=== PATIENT | male | born 1955 | race Caucasian/White ===

== ENCOUNTER 2019-11-17 15:28 | Observation (INO) | payer OTHER ==
--- NOTE | 2019-11-17 15:57 | RAD ---
EXAM: CHEST ONE VIEW HISTORY: Chest pain COMPARISON: None FINDINGS: The cardiac silhouette and pulmonary vasculature is within normal limits. Scattered calcified granulo melendez are seen with calcified bilateral hilar lymph nodes related to prior granulomatous disease. Lungs are otherwise clear without consolidation or pleural fluid seen. Postoperative changes lower ce rvical and upper thoracic spine are noted. Degenerative changes are seen in the thoracic spine. IMPRESSION: No acute cardiopulmonary process.
[2019-11-17 16:05] LABS: #Eosinphils 0.1 thou/uL (0.0-0.7); #Lymphocytes 1.4 thou/uL (1.20-3.40); #Monocytes 0.7 thou/uL (0.11-0.59); #Neutrophils 4.9 thou/uL (1.40-6.50); %Basophils 0.5 % (0.0-1.0); %Eosinophils 0.9 % (0.0-10.0); %Lymphocytes 19.8 % (21.0-51.0); %Monocytes 9.7 % (0.0-10.0); Hemoglobin 14.7 g/dL (14.0-18.0); Mean Corpuscular HGB CONC 32.3 g/dL (32.0-36.0); Mean Corpuscular Hemoglobin 30.4 pg (27.0-31.0); Mean Corpuscular Volume 94.1 fL (78.0-98.0); Mean Platelet Volume 6.5 fL (7.4-10.4); Platelet Count 251 thou/uL (130-400); RBC Distribution Width 12.4 % (11.5-14.5); Red Blood Cell (RBC) Count 4.84 mill/uL (4.70-6.10); White Blood Cell (WBC) Count 7.1 thou/uL (4.8-10.8)
[2019-11-17 16:25] LABS: ALT (SGPT) 19 U/L (8-55); AST (SGOT) 22 U/L (5-34); Albumin 4.1 g/dL (3.4-4.8); Alkaline Phosphatase 64 U/L (40-110); Anion Gap 12 mmol/L (10-20); BUN (Urea Nitrogen) 16 mg/dL (8.4-25.7); Bilirubin, Total 0.3 mg/dL (0.2-1.2); CK (CPK) 93 U/L (30-200); Calc. Creatinine Clearance 0 mL/min (70-130); Calcium 9.6 mg/dL (7.8-10.44); Carbon Dioxide 26 mmol/L (23-31); Chloride 108 mmol/L (98-107); Estimated GFR-MDRD 78; Globulin 3.3 g/dL (2.4-3.5); Glucose 102 mg/dL (80-115); Potassium 4.6 mmol/L (3.5-5.1); Protein, Total 7.4 g/dL (5.8-8.1); Sodium 141 mmol/L (136-145)
[2019-11-17] MEDS ORDERED: Nitroglycerin 0.4 MG TAB (25 Tab Bottle) PO PRN (20:32)
[2019-11-17] MEDS ORDERED: Guaifenesin DM 100-10/5 ML UDCUP PO PRN (20:37)
[2019-11-17] MEDS ORDERED: Acetaminophen 325 MG TAB PO PRN (20:37)
[2019-11-17] MEDS ORDERED: Ipratropium Oral Inhaler INH PRN (20:42)
--- NOTE | 2019-11-17 21:00 | PDOC.HHP ---
Hospitalist HPI - History of Present Illness Chest pain History of Present Illness: PCP: None The patient is a 64/M with PMH significant for CABG x2 (2009), HTN, HLD, COPD and asthma that presents to the ER for the above complaint. The patient reports developing acute onset of chest pain at 1300 this afternoon, located midsternum and radiating to right chest, describes as sharp, stabbing, exacerbated with deep inhalation, max intensity 7/10. Reports associated SOB, diaphoresis and light headedness. Reports similar episode last night while sitting at dinning table. Same symptoms , lasting approximately 10 minutes, then resolved. He thought it was more muscular skeletal pain since earlier that day he lifted a motorcycle tire and probably pulled a muscle. The patient was given SL nitro x 2 and ASA with improvement of chest pain, reporting 5/10. Patient denies heart palpitations, orthopnea, lower extremity swelling, illicit drug usage. He was brought to the ER by [facility]. Upon examination, his chest pain was resolved. The patient has not been to a doctor since 2009. He does not take any medications. Allergies: Penicillins Home Medications: NONE ED Course: VS 98.6F, 131/77, 84, 20, 96%RA, pain 0/10 EKG NSR, CXR negative trop negative CK 93 Hospitalist ROS - Review of Systems Constitutional: denies: fever, chills, sweats, weakness, malaise, other Eyes: denies: pain, vision change, conjunctivae inflammation, eyelid inflammation, redness, other ENT: denies: ear pain, ear discharge, nose pain, nose discharge, nose congestion , mouth pain, mouth swelling, throat pain, throat swelling, other Respiratory: reports: cough (chronic), dry, shortness of breath, pleuritic pain , wheezing. denies: hemoptysis, SOB with excertion, sputum Cardiovascular: reports: chest pain, light headedness. denies: palpitations, orthopnea, paroxysmal noc. dyspnea, edema Gastrointestinal: denies: nausea, vomiting, abdominal pain, diarrhea, constipation Genitourinary: denies: dysuria, frequency, incontinence, hematuria Skin: denies: rash, lesions, bruising Neurological: denies: weakness, numbness, incoordination, change in speech, confusion Hospitalist History - Past Medical History Source: patient Cardiac: reports: CAD, HTN (not treating), Hyperlipidemia (not treating) Pulmonary: reports: asthma, COPD - Past Surgical History Past Surgical History: reports: no pertinent history - Family History Family History: reports: cardiac disorder, cerebrovascular accident, respiratory disorder Other Family History: n - Social History Smoking Status: Current every day smoker Tobacco Type: cigarettes (1/2 ppd since teenager) Alcohol: reports: Rare Drugs: reports: none Living Situation: Other Occupation: Currently in Intermediate Activity level: independent ambulation - Exam General Appearance: NAD, awake alert Eye: anicteric sclera ENT: normocephalic atraumatic Neck: supple, no JVD Heart: RRR, no murmur, no gallops, no rubs, normal peripheral pulses Respiratory: no tachypnea, rhonchi, wheezes. negative: no rales Gastrointestinal: soft, non-tender, normal bowel sounds, no guarding, no rigidity Extremities: no cyanosis, no edema Neurological: no focal deficits Musculoskeletal: normal tone, normal strength Psychiatric: normal affect, A&O x 3 Hospitalist Results - Labs Result Diagrams: 11/17/19 15:54 11/17/19 15:54 Lab results: WBC 7.1 thou/uL (4.8-10.8) 11/17/19 15:54 Hgb 14.7 g/dL (14.0-18.0) 11/17/19 15:54 Hct 45.6 % (42.0-52.0) 11/17/19 15:54 MCV 94.1 fL (78.0-98.0) 11/17/19 15:54 Plt Count 251 thou/uL (130-400) 11/17/19 15:54 Neutrophils % 69.0 % (42.0-75.0) 11/17/19 15:54 Sodium 141 mmol/L (136-145) 11/17/19 15:54 Potassium 4.6 mmol/L (3.5-5.1) 11/17/19 15:54 Chloride 108 mmol/L (98-107) H 11/17/19 15:54 Carbon Dioxide 26 mmol/L (23-31) 11/17/19 15:54 BUN 16 mg/dL (8.4-25.7) 11/17/19 15:54 Creatinine 0.97 mg/dL (0.7-1.3) 11/17/19 15:54 Glucose 102 mg/dL (80-115) 11/17/19 15:54 Calcium 9.6 mg/dL (7.8-10.44) 11/17/19 15:54 Total Bilirubin 0.3 mg/dL (0.2-1.2) 11/17/19 15:54 AST 22 U/L (5-34) 11/17/19 15:54 ALT 19 U/L (8-55) 11/17/19 15:54 Alkaline Phosphatase 64 U/L (40-110) 11/17/19 15:54 Creatine Kinase 93 U/L (30-200) 11/17/19 15:54 Troponin I Less than 0.010 ng/mL (< 0.028) 11/17/19 15:54 Serum Total Protein 7.4 g/dL (5.8-8.1) 11/17/19 15:54 Albumin 4.1 g/dL (3.4-4.8) 11/17/19 15:54 - EKG Interpretation EKG: NSR - Radiology Interpretation Chest x-ray Status: report reviewed by il Hospitalist H&P A/P - Problem (1) Chest pain Code(s): R07.9 - CHEST PAIN, UNSPECIFIED Status: Acute Assessment and Plan: Admit to telemetry floor, observations status Expected length of stay less than 2 midnights EKG NSR, trop negative HEART Score 5 Wells Score 0, low risk Trend troponins [place] [employer] SU[employer] SPECIALIST and echocardiogram Check TSH, FLP, Mag level and BNP Continue ASA, Nitropaste NPO at midnight (2) HTN (hypertension) Code(s): I10 - ESSENTIAL (PRIMARY) HYPERTENSION Status: Chronic Assessment and Plan: History of CABG Does not take any medications Will monitor blood pressure (3) HLD (hyperlipidemia) Code(s): E78.5 - HYPERLIPIDEMIA, UNSPECIFIED Status: Chronic Assessment and Plan: Does not take any medications Will start high intensity statin Will check FLP in am (4) Tobacco abuse Code(s): Z72.0 - TOBACCO USE Status: Chronic Assessment and Plan: 1/2 ppd > 40 years Unwilling to quit Will start NRT Will phone counselor tobacco cessation (5) COPD (chronic obstructive pulmonary disease) Status: Chronic Assessment and Plan: RR even unlabored, Spo2 WNL patient had rhonchi and wheezes with chronic dry cough on examination Will start Atrovent and guaifenesin prn - Plan Plan: Consult walking program SCDs for DVT prophylaxis Pepcid for GI prophylaxis Full Code Medical decision maker is Umberto Diaz at [phone] Garcia
[2019-11-17 21:48] LABS: Troponin I 0.015 ng/mL (< 0.028)
[2019-11-17 22:04] VITALS: BMI 22.6
[2019-11-17] MEDS: Famotidine 20 MG TAB PO SCH (22:27)
[2019-11-17] MEDS: Nicotine 14 MG PATCH TD SCH (22:30)
[2019-11-17] MEDS: Sodium Chloride 0.9% 1,000 ML IV SCH (22:30)
[2019-11-17] MEDS: Nitroglycerin 2% Ointment 1 INCH/1 GM Packet TOP SCH (22:30)
[2019-11-18 05:24] LABS: #Basophils 0.1 thou/uL (0.0-0.2); #Eosinphils 0.2 thou/uL (0.0-0.7); #Lymphocytes 1.9 thou/uL (1.20-3.40); #Monocytes 0.8 thou/uL (0.11-0.59); #Neutrophils 4.6 thou/uL (1.40-6.50); Hemoglobin 14.1 g/dL (14.0-18.0); Mean Corpuscular HGB CONC 31.7 g/dL (32.0-36.0); Mean Corpuscular Volume 94.7 fL (78.0-98.0); Mean Platelet Volume 6.6 fL (7.4-10.4); Platelet Count 233 thou/uL (130-400); RBC Distribution Width 12.4 % (11.5-14.5); Red Blood Cell (RBC) Count 4.68 mill/uL (4.70-6.10); White Blood Cell (WBC) Count 7.5 thou/uL (4.8-10.8)
[2019-11-18 05:45] LABS: Anion Gap 10 mmol/L (10-20); BUN (Urea Nitrogen) 13 mg/dL (8.4-25.7); Calc. Creatinine Clearance 82 mL/min (70-130); Calcium 8.8 mg/dL (7.8-10.44); Carbon Dioxide 27 mmol/L (23-31); Chloride 108 mmol/L (98-107); Cholesterol 133 mg/dl (< 200 Desired); Estimated GFR-MDRD 89; Glucose 94 mg/dL (80-115); HDL Cholesterol 44 mg/dL (>60 Neg Risk); LDL Cholesterol, Calculated 75 mg/dL; Potassium 4.1 mmol/L (3.5-5.1); Sodium 141 mmol/L (136-145); Triglycerides 71 mg/dL (Less than 150)
[2019-11-18] MEDS: Nitroglycerin 2% Ointment 1 INCH/1 GM Packet TOP SCH ×3 (08:30→21:31)
[2019-11-18] MEDS: Famotidine 20 MG TAB PO SCH ×2 (08:30→21:30)
[2019-11-18] MEDS: Aspirin 81 mg Enteric Coated Tablet PO SCH (08:30)
--- NOTE | 2019-11-18 11:24 | PDOC.HOSPP ---
- Subjective Encounter Date: 11/18/19 Encounter Time: 11:23 Subjective: Mr. Diaz was seen today in follow-up of chest pain. He notes it mostly when coughing. He also notes some shortness of breath as well. - Objective Vital Signs & Weight: Vital Signs (12 hours) Temp Pulse Resp BP Pulse Ox 11/18/19 08:40 96.6 F L 77 16 156/88 H 97 11/18/19 03:45 95.1 F L 88 21 H 153/90 H 96 Weight Weight 149 lb 3.2 oz I&O: 11/17/19 11/18/19 11/19/19 06:59 06:59 06:59 Intake Total 519 Output Total 375 Balance 144 Result Diagrams: 11/18/19 05:07 11/18/19 05:07 Additional Labs: Accuchecks 11/17/19 22:24 POC Glucose 116 H Hospitalist ROS - Medication Medications: Active Medications Generic Name Dose Route Start Last Admin Trade Name Freq PRN Reason Stop Dose Admin Aspirin 81 mg 11/18/19 09:00 11/18/19 08:30 Ecotrin PO 81 mg DAILY RONNA Administration Famotidine 20 mg 11/17/19 21:00 11/18/19 08:30 Pepcid PO 20 mg BID RONNA Administration Sodium Chloride 1,000 mls @ 75 mls/hr 11/17/19 23:59 11/17/19 22:30 Normal Saline 0.9% IV 1,000 mls .[id number] RONNA Administration Nicotine 14 mg 11/17/19 21:00 11/17/19 22:30 Nicoderm Patch TD Not Given Q24HR RONNA Nitroglycerin 0.5 inch 11/17/19 22:00 11/18/19 08:30 Nitro-Bid 2% Ointment TOP Not Given Q8HR RONNA Sodium Chloride 10 ml 11/17/19 20:32 11/17/19 22:27 Flush - Normal Saline IVF 10 ml PRN PRN Administration Saline Flush - Exam Eye: PERRL, anicteric sclera Heart: RRR, no murmur, no gallops, no rubs, normal peripheral pulses Respiratory: wheezes (Bilaterally, no rales but occasional rhonchi) Gastrointestinal: soft, non-tender, non-distended, normal bowel sounds, no palpable masses, no hepatomegaly Extremities: no cyanosis, no edema Hosp A/P (1) Acute and chronic respiratory failure Code(s): J96.20 - ACUTE AND CHR RESP FAILURE, UNSP W HYPOXIA OR HYPERCAPNIA Status: Acute (2) COPD exacerbation Code(s): J44.1 - CHRONIC OBSTRUCTIVE PULMONARY DISEASE W (ACUTE) EXACERBATION Status: Acute (3) Chest pain Code(s): R07.9 - CHEST PAIN, UNSPECIFIED Status: Acute (4) HTN (hypertension) Code(s): I10 - ESSENTIAL (PRIMARY) HYPERTENSION Status: Chronic - Plan * Acute on chronic respiratory failure- due to COPD exacerbation- will continue Atrovent inhaler, and will add Dulera\ * Chest pain- ;ossible due to above- however work-up for ischemic heart disease and biliary disease planned * Patient has been threatening to leave AMA- discussed the treatment plan and consequences of leaving * COVID screen is pending * HTN- blood pressure is a bit elevated- will add Cardizem for blood pressure * SVT- patient had an episode of SVT- possibly related to COPD- kaylin add Cardizem as above, and if he recurs consider Cardiology evaluation.
[2019-11-18] MEDS ORDERED: Regadenoson 0.4 MG/5 ML SYRINGE ONE (11:29)
[2019-11-18] MEDS: Sodium Chloride 0.9% 1,000 ML IV SCH (11:46)
[2019-11-18 11:56] LABS: SARS-CoV-2 MS2 Positive; SARS-CoV-2 N Gene Negative; SARS-CoV-2 S Gene Negative; SARS-CoV-2 orf1ab Negative
[2019-11-18] MEDS: Acetaminophen 325 MG TAB PO PRN (14:17)
--- NOTE | 2019-11-18 15:49 | NM ---
Radionucleotide stress only myocardial perfusion scan with CT attenuation correction and SPECT imagin g Left ventricular wall motion evaluation and ejection fraction HISTORY: Chest pain. FINDINGS: Lexiscan protocol. Homogeneous uptake of radiotracer throughout the left ventricular myocar dium. No focal perfusion defect or reversibility. QGS analysis of gated SPECT images shows no focal wall motion abnormalities. Ejection fraction calcul ated at 63%. IMPRESSION : Normal perfusion only scan. Normal LVEF.
--- NOTE | 2019-11-18 16:08 | ULT ---
ULTRASOUND ABDOMEN: 11/18/19 HISTORY: Elevated lipase. FINDINGS: The liver demonstrates homogeneous echotexture without focal mass or intrahepatic ductal dilatation. No gallstones, gallbladder wall thickening or pericholecystic fluid is seen. The common duct measures 3 mm in diameter. The right kidney and pancreas are unremarkable except for minimally dilated pancre atic duct measuring 4 mm. No free fluid is seen in Guy's pouch. IMPRESSION: Mildly dilated pancreatic duct, otherwise unremarkable exam. POS: MZA
[2019-11-18] MEDS: Mometasone 100 MCG/Formoterol 5 MCG 120 PUFF INHALER INH SCH (18:16)
[2019-11-18] MEDS ORDERED: Atorvastatin Calcium 20 MG TAB PO SCH (21:00)
[2019-11-18] MEDS: Nicotine 14 MG PATCH TD SCH (21:31)
[2019-11-19] MEDS: Sodium Chloride 0.9% 1,000 ML IV SCH (02:34)
[2019-11-19] MEDS: Nitroglycerin 2% Ointment 1 INCH/1 GM Packet TOP SCH ×2 (05:00→14:26)
[2019-11-19] MEDS: Acetaminophen 325 MG TAB PO PRN (05:03)
[2019-11-19 05:06] LABS: #Eosinphils 0.1 thou/uL (0.0-0.7); #Lymphocytes 2.1 thou/uL (1.20-3.40); #Monocytes 0.7 thou/uL (0.11-0.59); #Neutrophils 4.2 thou/uL (1.40-6.50); %Basophils 0.5 % (0.0-1.0); %Lymphocytes 29.4 % (21.0-51.0); %Monocytes 9.4 % (0.0-10.0); %Neutrophils 58.7 % (42.0-75.0); Hemoglobin 13.8 g/dL (14.0-18.0); Mean Corpuscular HGB CONC 31.7 g/dL (32.0-36.0); Mean Corpuscular Hemoglobin 29.9 pg (27.0-31.0); Mean Corpuscular Volume 94.3 fL (78.0-98.0); Mean Platelet Volume 6.9 fL (7.4-10.4); Platelet Count 240 thou/uL (130-400); RBC Distribution Width 12.2 % (11.5-14.5); Red Blood Cell (RBC) Count 4.62 mill/uL (4.70-6.10); White Blood Cell (WBC) Count 7.2 thou/uL (4.8-10.8)
[2019-11-19 05:22] LABS: Anion Gap 10 mmol/L (10-20); BUN (Urea Nitrogen) 13 mg/dL (8.4-25.7); Calc. Creatinine Clearance 73 mL/min (70-130); Calcium 8.7 mg/dL (7.8-10.44); Carbon Dioxide 27 mmol/L (23-31); Chloride 106 mmol/L (98-107); Estimated GFR-MDRD 77; Glucose 89 mg/dL (80-115); Sodium 139 mmol/L (136-145)
[2019-11-19 05:43] LABS: Free T4 (Free Thyroxine) 0.78 ng/dL (0.70-1.48); Thyroid Stimulating Hormone 1.4954 uIU/mL (0.35-4.94)
[2019-11-19] MEDS: Mometasone 100 MCG/Formoterol 5 MCG 120 PUFF INHALER INH SCH (06:52)
[2019-11-19] MEDS: Aspirin 81 mg Enteric Coated Tablet PO SCH (09:09)
[2019-11-19] MEDS: Famotidine 20 MG TAB PO SCH (09:09)
[2019-11-19 15:50] VITALS: BP 149/78; TEMP 98.4
--- NOTE | 2019-11-19 16:36 | PDOC.HOSPP ---
- Subjective Encounter Date: 11/19/19 Encounter Time: 16:33 Subjective: Mr. Diaz was seen today in follow-up of respiratory failure. He does not have any complaints. He says he is breathing better. - Objective Vital Signs & Weight: Vital Signs (12 hours) Temp Pulse Resp BP Pulse Ox 11/19/19 15:13 98.4 F 73 16 149/78 H 97 11/19/19 11:08 97.5 F L 67 16 140/83 97 11/19/19 07:12 98.0 F 76 18 127/73 96 11/19/19 06:53 98 11/19/19 06:52 71 16 96 Weight Weight 151 lb 4.8 oz I&O: 11/18/19 11/19/19 11/20/19 06:59 06:59 06:59 Intake Total 519 2523 480 Output Total 375 1225 900 Balance 144 1298 -420 Result Diagrams: 11/19/19 04:15 11/19/19 04:15 Hospitalist ROS - Medication Medications: Active Medications Generic Name Dose Route Start Last Admin Trade Name Freq PRN Reason Stop Dose Admin Acetaminophen 650 mg 11/18/19 12:55 11/19/19 05:03 Tylenol PO 650 mg Q6H PRN Administration Pain Aspirin 81 mg 11/18/19 09:00 11/19/19 09:09 Ecotrin PO 81 mg DAILY RONNA Administration Atorvastatin Calcium 20 mg 11/18/19 21:00 11/18/19 21:30 Lipitor PO 20 mg HS RONNA Administration Diltiazem HCl 30 mg 11/18/19 17:00 11/19/19 11:54 Cardizem PO 30 mg ACHS RONNA Administration Famotidine 20 mg 11/17/19 21:00 11/19/19 09:09 Pepcid PO 20 mg BID RONNA Administration Sodium Chloride 1,000 mls @ 75 mls/hr 11/17/19 23:59 11/19/19 02:34 Normal Saline 0.9% IV 1,000 mls .[id number] RONNA Administration Ipratropium [place] 1 puff 11/17/19 20:42 11/18/19 12:11 Atrovent Hfa INH 1 puff QID-RT PRN Administration Wheezing or Cough Mometasone Furoate/Formoterol Fumar 1 puff 11/18/19 18:30 11/19/19 06:52 Dulera 100 Mcg/5 Mcg Inhaler INH 1 puff BID-RT RONNA Administration Nicotine 14 mg 11/17/19 21:00 11/18/19 21:31 Nicoderm Patch TD Not Given Q24HR [facility] Nitroglycerin 0.5 inch 11/17/19 22:00 11/19/19 14:26 Nitro-Bid 2% Ointment TOP Not Given Q8HR [facility] Sodium Chloride 10 ml 11/17/19 20:32 11/17/19 22:27 Flush - Normal Saline IVF 10 ml PRN PRN Administration Saline Flush - Exam Eye: PERRL, anicteric sclera Heart: RRR, no murmur, no gallops, no rubs, normal peripheral pulses Respiratory: CTAB (with only occasional wheeze) Gastrointestinal: soft, non-tender, non-distended, normal bowel sounds, no palpable masses, no hepatomegaly Extremities: no cyanosis, no edema Hosp A/P (1) Acute and chronic respiratory failure Code(s): J96.20 - ACUTE AND CHR RESP FAILURE, UNSP W HYPOXIA OR HYPERCAPNIA Status: Acute (2) COPD exacerbation Code(s): J44.1 - CHRONIC OBSTRUCTIVE PULMONARY DISEASE W (ACUTE) EXACERBATION Status: Acute (3) Chest pain Code(s): R07.9 - CHEST PAIN, UNSPECIFIED Status: Acute (4) HTN (hypertension) Code(s): I10 - ESSENTIAL (PRIMARY) HYPERTENSION Status: Chronic - Plan * Acute on chronic respiratory failure- due to COPD exacerbation * He is clinically improved * Will send him home with Symbicort IH as well as an Albuterol IH * Stress test was negative * COVID screen also negative * Discussed the need to stop smoking * He is stable for discharge home today
--- NOTE | 2019-11-20 01:25 | DIS ---
DATE OF ADMISSION: 11/17/2019 DATE OF DISCHARGE: 11/19/2019 DISCHARGE DISPOSITION: Home. DISCHARGE DIAGNOSES: 1. Acute on chronic respiratory failure due to chronic obstructive pulmonary disease. 2. Chest pain, likely due to #1. 3. Hypertension. 4. History of coronary artery disease. 5. Tobacco abuse. DISCHARGE MEDICATIONS: Include albuterol inhaler 1 to 2 puffs q.6h as needed, as well as Symbicort 80/4.5 two puffs twice daily. CODE STATUS: Full code. ALLERGIES: PENICILLIN. IMAGING DONE DURING THE HOSPITAL STAY: The patient had a nuclear stress test, which was negative, also had an abdominal ultrasound which showed a slightly dilated pancreatic duct, otherwise normal exam. HOSPITAL COURSE: Mr. Diaz is a pleasant 64-year-old gentleman, who presented to the emergency room complaining of chest tightness and chest pain. He was placed in observation, ruled out. A nuclear stress test was obtained, which was negative. His pain was more or less atypical, worse with breathing and he had quite a bit of wheezing on exam. He is a long-time smoker and had findings consistent with COPD on x-ray and it is suspected that this is likely the result of COPD exacerbation. Therefore, the patient is being discharged home with albuterol as well as Symbicort. He has been instructed to follow up with the primary care physician in 1 to 2 weeks and he is also instructed on smoking cessation. Job ID: [id number]
== END 2019-11-19 17:40 | disposition home or self-care (01) ==
LOC: ERS 15:28 → 2SW 22:01
PROVIDERS: ADMIT Internal Medicine; ATTEND Internal Medicine
DX: J96.20 Acute and chronic respiratory failure, unspecified whether with hypoxia or hypercapnia (principal); J43.9 Emphysema, unspecified; I25.10 Atherosclerotic heart disease of native coronary artery without angina pectoris; I10 Essential (primary) hypertension; E78.5 Hyperlipidemia, unspecified; J45.909 Unspecified asthma, uncomplicated; F17.210 Nicotine dependence, cigarettes, uncomplicated; R07.9 Chest pain, unspecified; Z88.0 Allergy status to penicillin; Z95.1 Presence of aortocoronary bypass graft
CPT/HCPCS: 36415; 36416; 71045; 76705; 78452; 80048; 80053; 80061; 82150; 82550; 83690; 83735; 83880; 84439; 84443; 84484; 85025; 87635; 93005; 93010; 93017; 93306; 94760; 96360; 96361; A9500; G0378; J2785; U0003

== ENCOUNTER 2020-10-25 05:27 | Inpatient (IN) | payer MEDICARE, OTHER, SELFPAY ==
[2020-10-25] MEDS ORDERED: Albuterol Sulfate 2.5 mg/3 ml Neb ONE (06:42)
[2020-10-25 06:46] LABS: #Basophils 0.1 thou/uL (0.0-0.2); #Eosinphils 0.1 thou/uL (0.0-0.7); #Lymphocytes 1.6 thou/uL (1.20-3.40); #Monocytes 1.5 thou/uL (0.11-0.59); #Neutrophils 8.9 thou/uL (1.40-6.50); %Basophils 0.5 % (0.0-1.0); %Eosinophils 0.7 % (0.0-10.0); %Neutrophils 73.8 % (42.0-75.0); Hemoglobin 13.2 g/dL (14.0-18.0); Mean Corpuscular HGB CONC 31.8 g/dL (32.0-36.0); Mean Corpuscular Hemoglobin 31.6 pg (27.0-31.0); Mean Corpuscular Volume 99.2 fL (78.0-98.0); Platelet Count 267 thou/uL (130-400); RBC Distribution Width 13.9 % (11.5-14.5); Red Blood Cell (RBC) Count 4.19 mill/uL (4.70-6.10); White Blood Cell (WBC) Count 12.1 thou/uL (4.8-10.8)
[2020-10-25 06:58] LABS: Troponin I 0.057 ng/mL (< 0.028)
[2020-10-25 07:43] LABS: Albumin 3.1 g/dL (3.4-4.8); Calcium 8.2 mg/dL (7.8-10.44); Chloride 104 mmol/L (98-107); Potassium 6.2 mmol/L (3.5-5.1); Sodium 136 mmol/L (136-145)
[2020-10-25 07:44] LABS: ALT (SGPT) 116 U/L (8-55); AST (SGOT) 79 U/L (5-34); Alkaline Phosphatase 145 U/L (40-110); Anion Gap 15 mmol/L (10-20); BUN (Urea Nitrogen) 30 mg/dL (8.4-25.7); Bilirubin, Total 0.3 mg/dL (0.2-1.2); Calc. Creatinine Clearance 0 mL/min (70-130); Carbon Dioxide 23 mmol/L (23-31); Globulin 3.8 g/dL (2.4-3.5); Glucose 91 mg/dL (80-115); Lipase 227 U/L (8-78); Protein, Total 6.9 g/dL (5.8-8.1)
[2020-10-25 09:12] LABS: Anion Gap 12 mmol/L (10-20); BUN (Urea Nitrogen) 29 mg/dL (8.4-25.7); Calc. Creatinine Clearance 0 mL/min (70-130); Carbon Dioxide 27 mmol/L (23-31); Chloride 106 mmol/L (98-107); Glucose 100 mg/dL (80-115); Potassium 4.9 mmol/L (3.5-5.1); Sodium 140 mmol/L (136-145)
[2020-10-25] MEDS ORDERED: Senokot S 8.6-50 MG TAB PO PRN (09:50)
[2020-10-25] MEDS ORDERED: Guaifenesin DM 100-10/5 ML UDCUP PO PRN (09:50)
[2020-10-25] MEDS ORDERED: Acetaminophen 325 MG TAB PO PRN (09:50)
[2020-10-25] MEDS ORDERED: Calcium Carbonate 500 MG ChewTAB PO PRN (09:50)
[2020-10-25] MEDS ORDERED: HYDROcodone/Acetaminophen 5/325 mg Tablet PO PRN (09:50)
[2020-10-25] MEDS ORDERED: Bisacodyl 10 MG SUPP PR PRN (09:50)
[2020-10-25] MEDS ORDERED: Ondansetron PF 4 MG/2 ML Vial IVP PRN (09:50)
[2020-10-25 10:51] LABS: Troponin I 0.077 ng/mL (< 0.028)
[2020-10-25 11:08] LABS: HBCM Index 0.07 S/CO (0-0.79); HBSAg Index 0.22 S/CO (0-0.99); Hep A IgM AB Non-Reactive (NonReactive); Hep B Surf Ag Non-Reactive S/CO (NonReactive); Hep C IgG Ab Non-Reactive (NonReactive); Hep C Index 0.08 S/CO (0-0.79); Hepatitis B Core IgM Abs Non-Reactive (NonReactive)
[2020-10-25] MEDS ORDERED: Iopamidol-370 76% 500 ML 1 ML ONE (12:22)
[2020-10-25] MEDS ORDERED: Iopamidol 370 76% 50 ML VIAL FS ONE (12:22)
[2020-10-25 13:13] LABS: Troponin I 0.083 ng/mL (< 0.028)
[2020-10-25] MEDS ORDERED: Digoxin 0.5 MG/2 ML AMP ONE (13:28)
[2020-10-25] MEDS ORDERED: Digoxin 0.5 MG/2 ML AMP SLOW IVP SCH (13:30)
[2020-10-25] MEDS ORDERED: Diltiazem 125 MG in Sodium Chloride 0.9% 100 ML IVPB SCH (13:30)
[2020-10-25] MEDS ORDERED: Diltiazem 125 MG/25 ML ONE (13:33)
[2020-10-25] MEDS ORDERED: Metoprolol Tartrate 5 MG/5 ML VIAL ONE (13:36)
[2020-10-25 15:05] VITALS: BMI 24.9
[2020-10-25 15:52] LABS: SARS-CoV-2 PCR by NAA DETECTED (NotDetected)
[2020-10-25] MEDS: Furosemide 40 MG/4 ML VIAL SLOW IVP SCH (16:42)
[2020-10-25] MEDS ORDERED: methylPREDNISolone Sod Succ 40 MG VIAL IVP SCH (21:00)
[2020-10-25] MEDS: Doxycycline 100 MG CAP PO SCH (21:21)
[2020-10-25] MEDS: Apixaban 5 MG TAB PO SCH ×3 (21:21→23:06)
[2020-10-25] MEDS: Metoprolol Tartrate 50 MG TAB PO SCH ×2 (21:21→22:09)
[2020-10-25] MEDS ORDERED: Furosemide 40 MG/4 ML VIAL SLOW IVP SCH (22:30)
[2020-10-25] MEDS: Albuterol 200 PUFF (6.7GM INHALER) INH SCH (22:42)
[2020-10-26 01:33] LABS: Troponin I 0.062 ng/mL (< 0.028)
[2020-10-26] MEDS: Albuterol 200 PUFF (6.7GM INHALER) INH SCH ×4 (01:36→21:03)
[2020-10-26] MEDS: methylPREDNISolone Sod Succ 40 MG VIAL IVP SCH ×4 (03:54→21:04)
[2020-10-26 06:01] LABS: #Lymphocytes 0.7 thou/uL (1.20-3.40); #Monocytes 0.4 thou/uL (0.11-0.59); #Neutrophils 8.5 thou/uL (1.40-6.50); %Basophils 0.2 % (0.0-1.0); %Lymphocytes 7.4 % (21.0-51.0); %Monocytes 3.7 % (0.0-10.0); %Neutrophils 88.7 % (42.0-75.0); Hemoglobin 13.9 g/dL (14.0-18.0); Mean Corpuscular HGB CONC 32.3 g/dL (32.0-36.0); Mean Corpuscular Hemoglobin 31.3 pg (27.0-31.0); Mean Corpuscular Volume 96.9 fL (78.0-98.0); Mean Platelet Volume 6.3 fL (7.4-10.4); Platelet Count 278 thou/uL (130-400); RBC Distribution Width 13.5 % (11.5-14.5); Red Blood Cell (RBC) Count 4.43 mill/uL (4.70-6.10); White Blood Cell (WBC) Count 9.6 thou/uL (4.8-10.8)
[2020-10-26 06:24] LABS: ALT (SGPT) 110 U/L (8-55); AST (SGOT) 58 U/L (5-34); Albumin 3.4 g/dL (3.4-4.8); Alkaline Phosphatase 137 U/L (40-110); Anion Gap 14 mmol/L (10-20); BUN (Urea Nitrogen) 21 mg/dL (8.4-25.7); Bilirubin, Total 0.8 mg/dL (0.2-1.2); Calc. Creatinine Clearance 79 mL/min (70-130); Calcium 9.3 mg/dL (7.8-10.44); Carbon Dioxide 30 mmol/L (23-31); Chloride 99 mmol/L (98-107); Globulin 3.4 g/dL (2.4-3.5); Glucose 117 mg/dL (80-115); Potassium 4.7 mmol/L (3.5-5.1); Protein, Total 6.8 g/dL (5.8-8.1); Sodium 138 mmol/L (136-145)
[2020-10-26] MEDS: Furosemide 40 MG/4 ML VIAL SLOW IVP SCH ×2 (06:36→15:34)
[2020-10-26] MEDS ORDERED: Aspirin Chewable 81 MG TAB PO SCH (09:00)
[2020-10-26] MEDS ORDERED: Lisinopril 5 MG TAB PO SCH (09:00)
[2020-10-26] MEDS ORDERED: Non-Formulary Item 1 EACH (Albuterol Sulfate [Albuterol Sulfate Hfa] 8.5 GM Hfa.Aer.Ad) IH PRN (09:44)
[2020-10-26] MEDS ORDERED: Albuterol 200 PUFF (6.7GM INHALER) INH PRN (10:08)
[2020-10-26] MEDS: Metoprolol Tartrate 50 MG TAB PO SCH (10:23)
[2020-10-26] MEDS: Doxycycline 100 MG CAP PO SCH ×2 (10:23→21:04)
[2020-10-26] MEDS: Apixaban 5 MG TAB PO SCH ×2 (10:23→21:04)
[2020-10-26] MEDS ORDERED: Iopamidol 370 76% 100 ML VIAL ONE (12:11)
[2020-10-26] MEDS ORDERED: Non-Formulary Item 1 EACH (Ipratropium/Albuterol Sulfate [Combivent Respimat] 120 PUFF In INH SCH (13:00)
[2020-10-26] MEDS: Piperacillin/Tazobactam 3.375 GM in Sodium Chloride 0.9% 100 ML IVPB SCH ×3 (14:51→23:42)
[2020-10-27] MEDS: Albuterol 200 PUFF (6.7GM INHALER) INH SCH ×4 (00:01→17:06)
[2020-10-27] MEDS: methylPREDNISolone Sod Succ 40 MG VIAL IVP SCH ×4 (03:24→20:43)
[2020-10-27] MEDS: Piperacillin/Tazobactam 3.375 GM in Sodium Chloride 0.9% 100 ML IVPB SCH ×4 (05:32→23:59)
[2020-10-27] MEDS: Aspirin 81 mg Enteric Coated Tablet PO SCH (07:53)
[2020-10-27] MEDS: Lisinopril 5 MG TAB PO SCH (07:53)
[2020-10-27] MEDS: Apixaban 5 MG TAB PO SCH ×2 (07:54→20:43)
[2020-10-27] MEDS: Doxycycline 100 MG CAP PO SCH ×2 (07:55→20:43)
[2020-10-27] MEDS ORDERED: predniSONE 5 MG TAB PO SCH (09:00)
[2020-10-27] MEDS ORDERED: Non-Formulary Item 1 EACH (Prednisone [Prednisone] 10 MG Tablet) PO SCH (09:00)
[2020-10-27 09:28] LABS: #Lymphocytes 0.6 thou/uL (1.20-3.40); #Monocytes 0.3 thou/uL (0.11-0.59); #Neutrophils 9.5 thou/uL (1.40-6.50); %Basophils 0.1 % (0.0-1.0); %Eosinophils 0.1 % (0.0-10.0); %Lymphocytes 5.5 % (21.0-51.0); %Monocytes 2.9 % (0.0-10.0); %Neutrophils 91.4 % (42.0-75.0); Mean Corpuscular HGB CONC 32.4 g/dL (32.0-36.0); Mean Corpuscular Hemoglobin 31.4 pg (27.0-31.0); Mean Corpuscular Volume 97.2 fL (78.0-98.0); Mean Platelet Volume 6.5 fL (7.4-10.4); Platelet Count 344 thou/uL (130-400); RBC Distribution Width 13.3 % (11.5-14.5); Red Blood Cell (RBC) Count 4.76 mill/uL (4.70-6.10); White Blood Cell (WBC) Count 10.4 thou/uL (4.8-10.8)
[2020-10-27 09:50] LABS: ALT (SGPT) 84 U/L (8-55); AST (SGOT) 39 U/L (5-34); Albumin 3.4 g/dL (3.4-4.8); Alkaline Phosphatase 133 U/L (40-110); Anion Gap 16 mmol/L (10-20); BUN (Urea Nitrogen) 31 mg/dL (8.4-25.7); Bilirubin, Total 0.7 mg/dL (0.2-1.2); Calc. Creatinine Clearance 57 mL/min (70-130); Calcium 8.9 mg/dL (7.8-10.44); Carbon Dioxide 33 mmol/L (23-31); Chloride 94 mmol/L (98-107); Globulin 3.6 g/dL (2.4-3.5); Glucose 173 mg/dL (80-115); Potassium 3.7 mmol/L (3.5-5.1); Sodium 139 mmol/L (136-145)
[2020-10-28] MEDS: Albuterol 200 PUFF (6.7GM INHALER) INH SCH ×3 (01:04→11:35)
[2020-10-28] MEDS: methylPREDNISolone Sod Succ 40 MG VIAL IVP SCH ×3 (02:46→14:34)
[2020-10-28 05:26] LABS: #Lymphocytes 0.6 thou/uL (1.20-3.40); #Monocytes 0.5 thou/uL (0.11-0.59); #Neutrophils 11.4 thou/uL (1.40-6.50); %Basophils 0.1 % (0.0-1.0); %Eosinophils 0.1 % (0.0-10.0); %Monocytes 3.8 % (0.0-10.0); Hemoglobin 14.5 g/dL (14.0-18.0); Mean Corpuscular HGB CONC 31.4 g/dL (32.0-36.0); Mean Corpuscular Hemoglobin 30.5 pg (27.0-31.0); Mean Corpuscular Volume 97.1 fL (78.0-98.0); Mean Platelet Volume 6.3 fL (7.4-10.4); Platelet Count 367 thou/uL (130-400); RBC Distribution Width 13.4 % (11.5-14.5); Red Blood Cell (RBC) Count 4.75 mill/uL (4.70-6.10); White Blood Cell (WBC) Count 12.5 thou/uL (4.8-10.8)
[2020-10-28] MEDS: Piperacillin/Tazobactam 3.375 GM in Sodium Chloride 0.9% 100 ML IVPB SCH ×2 (05:29→11:35)
[2020-10-28 05:55] LABS: ALT (SGPT) 66 U/L (8-55); AST (SGOT) 32 U/L (5-34); Albumin 3.2 g/dL (3.4-4.8); Alkaline Phosphatase 111 U/L (40-110); Anion Gap 14 mmol/L (10-20); BUN (Urea Nitrogen) 27 mg/dL (8.4-25.7); Bilirubin, Total 0.5 mg/dL (0.2-1.2); Calc. Creatinine Clearance 79 mL/min (70-130); Calcium 8.6 mg/dL (7.8-10.44); Carbon Dioxide 29 mmol/L (23-31); Chloride 101 mmol/L (98-107); Globulin 3.3 g/dL (2.4-3.5); Glucose 127 mg/dL (80-115); Protein, Total 6.5 g/dL (5.8-8.1); Sodium 140 mmol/L (136-145)
[2020-10-28] MEDS: Doxycycline 100 MG CAP PO SCH (08:55)
[2020-10-28] MEDS: Aspirin 81 mg Enteric Coated Tablet PO SCH (08:55)
[2020-10-28] MEDS: Lisinopril 5 MG TAB PO SCH (08:55)
[2020-10-28] MEDS: Apixaban 5 MG TAB PO SCH (08:55)
[2020-10-28 11:48] VITALS: BP 158/76; TEMP 98.9
[2020-10-28 12:20] LABS: SARS-CoV-2 IgG Ab Non-Reactive (NonReactive); SARS-CoV-2 IgG Index 0.07 S/CO (< 1.40)
== END 2020-10-28 16:13 | disposition home or self-care (01) | DRG 177 ==
LOC: ERS 05:27 → ERHOLD 09:42 → OBSVTOIN 11:23 → IMCU/EMU 15:02 → 2SW 10-27 12:46
PROVIDERS: ADMIT Internal Medicine; ATTEND Internal Medicine
DX: U07.1 COVID-19 (principal); J96.01 Acute respiratory failure with hypoxia; I50.23 Acute on chronic systolic (congestive) heart failure; J44.1 Chronic obstructive pulmonary disease with (acute) exacerbation; N17.9 Acute kidney failure, unspecified; I13.0 Hypertensive heart and chronic kidney disease with heart failure and stage 1 through stage 4 chronic kidney disease, or unspecified chronic kidney disease; I48.0 Paroxysmal atrial fibrillation; I73.9 Peripheral vascular disease, unspecified; K21.9 Gastro-esophageal reflux disease without esophagitis; I07.1 Rheumatic tricuspid insufficiency; Z96.653 Presence of artificial knee joint, bilateral; E87.5 Hyperkalemia; N18.2 Chronic kidney disease, stage 2 (mild); K76.1 Chronic passive congestion of liver; Z79.01 Long term (current) use of anticoagulants; Z79.82 Long term (current) use of aspirin; Z79.52 Long term (current) use of systemic steroids; Z88.0 Allergy status to penicillin; Z87.891 Personal history of nicotine dependence
CPT/HCPCS: 36415; 71045; 71275; 74178; 76705; 80053; 80074; 83690; 83880; 84484; 85025; 86769; 87040; 87635; 93005; 93010; 94640; 96374; 96375; G0378; J1160; J1940; J2543; J2920; J3490; J7512; J7611; J7620; Q9967; U0003; U0005

== ENCOUNTER 2020-11-27 13:00 | Inpatient (IN) | payer MEDICARE ==
[2020-11-27 13:52] LABS: #Basophils 0.1 thou/uL (0.0-0.2); #Eosinphils 0.2 thou/uL (0.0-0.7); #Lymphocytes 1.8 thou/uL (1.20-3.40); #Monocytes 1.1 thou/uL (0.11-0.59); #Neutrophils 6.6 thou/uL (1.40-6.50); %Basophils 0.6 % (0.0-1.0); %Eosinophils 1.7 % (0.0-10.0); %Lymphocytes 18.4 % (21.0-51.0); %Monocytes 11.4 % (0.0-10.0); %Neutrophils 67.8 % (42.0-75.0); Hemoglobin 15.4 g/dL (14.0-18.0); Mean Corpuscular HGB CONC 32.5 g/dL (32.0-36.0); Mean Corpuscular Hemoglobin 31.3 pg (27.0-31.0); Mean Corpuscular Volume 96.4 fL (78.0-98.0); Platelet Count 313 thou/uL (130-400); RBC Distribution Width 14.4 % (11.5-14.5); Red Blood Cell (RBC) Count 4.93 mill/uL (4.70-6.10); White Blood Cell (WBC) Count 9.8 thou/uL (4.8-10.8)
[2020-11-27 14:18] LABS: ALT (SGPT) 19 U/L (8-55); AST (SGOT) 27 U/L (5-34); Albumin 3.4 g/dL (3.4-4.8); Alkaline Phosphatase 75 U/L (40-110); Anion Gap 9 mmol/L (10-20); BUN (Urea Nitrogen) 23 mg/dL (8.4-25.7); Bilirubin, Total 0.5 mg/dL (0.2-1.2); Calc. Creatinine Clearance 0 mL/min (70-130); Calcium 9.1 mg/dL (7.8-10.44); Carbon Dioxide 25 mmol/L (23-31); Chloride 107 mmol/L (98-107); Globulin 3.5 g/dL (2.4-3.5); Glucose 113 mg/dL (80-115); Potassium 4.3 mmol/L (3.5-5.1); Protein, Total 6.9 g/dL (5.8-8.1); Sodium 137 mmol/L (136-145)
[2020-11-27] MEDS ORDERED: Adenosine 6 MG/2 ML VIAL ONE ×3 (14:31→18:47)
[2020-11-27 14:45] LABS: CKMB 7.5 ng/mL (0-6.6)
[2020-11-27] MEDS ORDERED: Vancomycin 1 GM/200 ML BAG ONE (15:08)
[2020-11-27 16:50] LABS: SARS-CoV-2 NAA Rapid Test Not Detected (NotDetected)
[2020-11-27] MEDS ORDERED: Metoprolol Tartrate 5 MG/5 ML VIAL IVP PRN (17:02)
[2020-11-27 17:08] VITALS: BMI 22.9
[2020-11-27 17:49] LABS: Troponin I 6.468 ng/mL (< 0.028)
[2020-11-27] MEDS ORDERED: [UNRECOGNIZED DRUG - OTHER] MC SCH (18:45)
[2020-11-27] MEDS ORDERED: Albuterol Sulfate 2.5 mg/3 ml Neb NEB PRN (18:50)
[2020-11-27] MEDS ORDERED: Non-Formulary Item 1 EACH (Albuterol Sulfate 200 PUFF Aer) INH SCH (19:00)
[2020-11-27 21:16] LABS: Troponin I 11.503 ng/mL (< 0.028)
[2020-11-27] MEDS: Apixaban 5 MG TAB PO SCH (21:27)
[2020-11-28 03:38] LABS: #Eosinphils 0.3 thou/uL (0.0-0.7); #Lymphocytes 1.8 thou/uL (1.20-3.40); #Monocytes 1.2 thou/uL (0.11-0.59); %Basophils 0.2 % (0.0-1.0); %Eosinophils 2.2 % (0.0-10.0); %Lymphocytes 13.7 % (21.0-51.0); %Monocytes 8.9 % (0.0-10.0); %Neutrophils 74.9 % (42.0-75.0); Hemoglobin 15.6 g/dL (14.0-18.0); Mean Corpuscular Hemoglobin 32.5 pg (27.0-31.0); Mean Corpuscular Volume 95.4 fL (78.0-98.0); Mean Platelet Volume 6.1 fL (7.4-10.4); Platelet Count 300 thou/uL (130-400); RBC Distribution Width 14.3 % (11.5-14.5); White Blood Cell (WBC) Count 13.4 thou/uL (4.8-10.8)
[2020-11-28 03:59] LABS: Anion Gap 12 mmol/L (10-20); BUN (Urea Nitrogen) 21 mg/dL (8.4-25.7); Calc. Creatinine Clearance 77 mL/min (70-130); Calcium 9.2 mg/dL (7.8-10.44); Carbon Dioxide 22 mmol/L (23-31); Chloride 107 mmol/L (98-107); Glucose 103 mg/dL (80-115); Sodium 136 mmol/L (136-145)
[2020-11-28] MEDS: Apixaban 5 MG TAB PO SCH (08:08)
[2020-11-28] MEDS: Lisinopril 5 MG TAB PO SCH (08:08)
[2020-11-28] MEDS: Aspirin 81 mg Enteric Coated Tablet PO SCH (08:08)
[2020-11-28] MEDS ORDERED: Loratadine 10 MG TAB PO PRN (08:33)
[2020-11-28] MEDS ORDERED: Loperamide HCl 2 MG CAP PO PRN (08:33)
[2020-11-28] MEDS ORDERED: Zolpidem Tartrate 5 MG TAB PO PRN (08:33)
[2020-11-28] MEDS ORDERED: Bisacodyl 5 MG TAB PO PRN (08:33)
[2020-11-28] MEDS ORDERED: Labetalol HCl 100 MG/20 ML VIAL SLOW IVP PRN (08:33)
[2020-11-28] MEDS ORDERED: Sodium Chloride 0.65% Nasal 44 ML BOT EA NARE PRN (08:33)
[2020-11-28] MEDS ORDERED: HYDROcodone/Acetaminophen 5/325 mg Tablet PO PRN (08:33)
[2020-11-28] MEDS ORDERED: GUAIFENESIN SF SOLN 200 MG/10 ML UDCUP PO PRN (08:33)
[2020-11-28] MEDS ORDERED: Senokot S 8.6-50 MG TAB PO PRN (08:33)
[2020-11-28] MEDS ORDERED: Calcium Carbonate 500 MG ChewTAB PO PRN (08:33)
[2020-11-28] MEDS ORDERED: Cepastat Lozenges 1 LOZ PO PRN (08:33)
[2020-11-28] MEDS ORDERED: Nitroglycerin 0.4 MG TAB (25 Tab Bottle) SL PRN (08:33)
[2020-11-28] MEDS ORDERED: Metoclopramide HCl 10 MG/2 ML VIAL IVP PRN (08:34)
[2020-11-28] MEDS ORDERED: Communication Order-Pharmacy FS SCH (09:45)
[2020-11-28] MEDS: Enoxaparin Sodium 60 MG/0.6 ML SYRINGE SC SCH ×2 (12:54→20:52)
[2020-11-28] MEDS: Atorvastatin Calcium 40 MG TAB PO SCH (20:52)
[2020-11-28] MEDS ORDERED: Apixaban 5 MG TAB PO SCH (21:00)
[2020-11-29] MEDS ORDERED: Verapamil 5 MG/2 ML VIAL ONE (06:31)
[2020-11-29] MEDS ORDERED: Heparin 10,000 UNITS/ 10 ML VIAL ONE (06:31)
[2020-11-29] MEDS ORDERED: Nitroglycerin 100MG/250ML BOT 250 ML ONE (06:32)
[2020-11-29] MEDS ORDERED: Lidocaine 1% (PF) 30 ML VIAL ONE (06:32)
[2020-11-29] MEDS ORDERED: Acetaminophen/Codeine 30-300mg Tablet PO PRN ×2 (08:15)
[2020-11-29] MEDS ORDERED: Nitroglycerin 0.4 MG TAB (25 Tab Bottle) SL PRN (08:15)
[2020-11-29] MEDS ORDERED: Sodium Chloride 0.9% 200 ML IV PRN (08:15)
[2020-11-29] MEDS ORDERED: Iopamidol 370 76% 100 ML VIAL ONE (08:44)
[2020-11-29] MEDS ORDERED: Iopamidol 370 76% 50 ML VIAL FS ONE (08:44)
[2020-11-29] MEDS: Lisinopril 5 MG TAB PO SCH (08:56)
[2020-11-29] MEDS: Aspirin 81 mg Enteric Coated Tablet PO SCH (09:14)
[2020-11-29] MEDS ORDERED: Metoprolol Tartrate 50 MG TAB PO SCH (19:40)
[2020-11-29] MEDS ORDERED: Sodium Chloride 0.9% 250 ML IVPB SCH (20:00)
[2020-11-29] MEDS: Atorvastatin Calcium 40 MG TAB PO SCH (20:23)
[2020-11-29] MEDS ORDERED: ALPRAZolam 0.5 MG TAB PO SCH (21:00)
[2020-11-30 08:42] VITALS: TEMP 98.4
[2020-11-30] MEDS: Aspirin 81 mg Enteric Coated Tablet PO SCH (09:01)
[2020-11-30 13:06] VITALS: BP 112/74
== END 2020-11-30 13:57 | disposition left against medical advice (07) | DRG 280 ==
LOC: ERS 13:00 → IMCU/EMU 15:26
PROVIDERS: ADMIT Internal Medicine; ATTEND Hospitalist
PROC: 4A023N7 Measurement of Cardiac Sampling and Pressure, Left Heart, Percutaneous Approach (ICD-10-PCS; principal; 2020-11-29)
PROC: B2111ZZ Fluoroscopy of Multiple Coronary Arteries using Low Osmolar Contrast (ICD-10-PCS; 2020-11-29)
DX: I47.1 Supraventricular tachycardia (principal); J18.9 Pneumonia, unspecified organism; I21.A1 Myocardial infarction type 2; J44.0 Chronic obstructive pulmonary disease with (acute) lower respiratory infection; J44.1 Chronic obstructive pulmonary disease with (acute) exacerbation; I42.8 Other cardiomyopathies; I13.0 Hypertensive heart and chronic kidney disease with heart failure and stage 1 through stage 4 chronic kidney disease, or unspecified chronic kidney disease; I48.0 Paroxysmal atrial fibrillation; E78.5 Hyperlipidemia, unspecified; K21.9 Gastro-esophageal reflux disease without esophagitis; I25.10 Atherosclerotic heart disease of native coronary artery without angina pectoris; N18.2 Chronic kidney disease, stage 2 (mild); I50.9 Heart failure, unspecified; Z20.822 Contact with and (suspected) exposure to COVID-19; Z86.16 Personal history of COVID-19; Z98.890 Other specified postprocedural states; Z79.82 Long term (current) use of aspirin; Z79.01 Long term (current) use of anticoagulants; Z87.891 Personal history of nicotine dependence; Z88.0 Allergy status to penicillin; Z71.6 Tobacco abuse counseling
CPT/HCPCS: 0240U; 36415; 71045; 80048; 80053; 82553; 83880; 84484; 85025; 93005; 93458; 93798; 96365; 96366; 96375; J0153; J1644; J1650; J1956; J2001; J3370; J7030; Q9967

== ENCOUNTER 2021-03-11 22:14 | Inpatient (IN) | payer MEDICARE ==
[~2021-03-11 22:14] MED LIST: Iopamidol-370 76% 500 ML 1 ML ONE
[2021-03-11 22:59] LABS: #Eosinphils 0.1 thou/uL (0.0-0.7); #Monocytes 1.3 thou/uL (0.11-0.59); #Neutrophils 6.8 thou/uL (1.40-6.50); %Basophils 0.4 % (0.0-1.0); %Eosinophils 0.8 % (0.0-10.0); %Lymphocytes 19.4 % (21.0-51.0); %Monocytes 13.1 % (0.0-10.0); %Neutrophils 66.3 % (42.0-75.0); Hemoglobin 15.8 g/dL (14.0-18.0); Mean Corpuscular HGB CONC 33.8 g/dL (32.0-36.0); Mean Corpuscular Hemoglobin 32.4 pg (27.0-31.0); Mean Corpuscular Volume 95.8 fL (78.0-98.0); Mean Platelet Volume 7.1 fL (7.4-10.4); Platelet Count 203 thou/uL (130-400); RBC Distribution Width 14.1 % (11.5-14.5); Red Blood Cell (RBC) Count 4.87 mill/uL (4.70-6.10); White Blood Cell (WBC) Count 10.2 thou/uL (4.8-10.8)
[2021-03-11 23:19] LABS: ALT (SGPT) 99 U/L (8-55); AST (SGOT) 80 U/L (5-34); Albumin 3.5 g/dL (3.4-4.8); Alkaline Phosphatase 133 U/L (40-110); Anion Gap 14 mmol/L (10-20); BUN (Urea Nitrogen) 20 mg/dL (8.4-25.7); Bilirubin, Total 1.5 mg/dL (0.2-1.2); Calc. Creatinine Clearance 0 mL/min (70-130); Calcium 9.4 mg/dL (7.8-10.44); Carbon Dioxide 19 mmol/L (23-31); Chloride 106 mmol/L (98-107); Globulin 3.5 g/dL (2.4-3.5); Glucose 94 mg/dL (80-115); Potassium 5.4 mmol/L (3.5-5.1); Sodium 134 mmol/L (136-145)
[2021-03-11 23:43] LABS: CKMB 4.6 ng/mL (0-6.6)
[2021-03-12] MEDS ORDERED: Furosemide 100 MG/10 ML VIAL ONE (00:08)
[2021-03-12] MEDS ORDERED: Cefepime 2 GM VIAL ONE (00:08)
[2021-03-12] MEDS ORDERED: Diltiazem 125 MG/25 ML ONE (02:33)
[2021-03-12] MEDS ORDERED: Nitroglycerin 0.4 MG TAB (25 Tab Bottle) SL PRN (02:42)
[2021-03-12] MEDS ORDERED: Labetalol HCl 100 MG/20 ML VIAL SLOW IVP PRN (02:42)
[2021-03-12] MEDS ORDERED: Albuterol Sulfate 2.5 mg/3 ml Neb NEB PRN (02:43)
[2021-03-12] MEDS ORDERED: Acetaminophen 325 MG TAB PO PRN (02:44)
[2021-03-12] MEDS ORDERED: Bisacodyl 5 MG TAB PO PRN (02:44)
[2021-03-12] MEDS ORDERED: HYDROcodone/Acetaminophen 5/325 mg Tablet PO PRN (02:44)
[2021-03-12] MEDS ORDERED: Amiodarone 450 MG in Dextrose 5% in Water 250 ML IVPB SCH (02:45)
[2021-03-12 02:56] LABS: SARS-CoV-2 NAA Rapid Test Not Detected (NotDetected)
[2021-03-12 03:15] LABS: Troponin I 0.036 ng/mL (< 0.028)
[2021-03-12] MEDS ORDERED: Amiodarone 450 MG, Admixture Fee 1 EACH in Dextrose 5% in Water 250 ML IVPB SCH (03:15)
[2021-03-12] MEDS ORDERED: Amiodarone 150 MG, Admixture Fee 1 EACH in Dextrose 5% in Water 100 ML IVPB SCH (03:15)
[2021-03-12 03:16] LABS: Lactic Acid 2.1 mmol/L (0.5-2.2)
[2021-03-12] MEDS: Furosemide 40 MG/4 ML VIAL SLOW IVP SCH ×2 (07:16→12:38)
[2021-03-12 07:29] LABS: Albumin 3.4 g/dL (3.4-4.8); Anion Gap 14 mmol/L (10-20); BUN (Urea Nitrogen) 26 mg/dL (8.4-25.7); BUN/Creatinine Ratio 18.06; Calc. Creatinine Clearance 0 mL/min (70-130); Calcium 9.6 mg/dL (7.8-10.44); Carbon Dioxide 27 mmol/L (23-31); Chloride 98 mmol/L (98-107); Glucose 92 mg/dL (80-115); Magnesium 2.1 mg/dL (1.6-2.6); Phosphorus 5.1 mg/dL (2.3-4.7); Potassium 4.9 mmol/L (3.5-5.1); Sodium 134 mmol/L (136-145)
[2021-03-12 07:30] LABS: #Basophils 0.1 thou/uL (0.0-0.2); #Eosinphils 0.1 thou/uL (0.0-0.7); #Monocytes 1.5 thou/uL (0.11-0.59); #Neutrophils 7.2 thou/uL (1.40-6.50); %Basophils 0.5 % (0.0-1.0); %Eosinophils 0.7 % (0.0-10.0); %Lymphocytes 18.6 % (21.0-51.0); %Monocytes 13.5 % (0.0-10.0); %Neutrophils 66.7 % (42.0-75.0); Hemoglobin 15.4 g/dL (14.0-18.0); Mean Corpuscular HGB CONC 31.8 g/dL (32.0-36.0); Mean Corpuscular Hemoglobin 30.8 pg (27.0-31.0); Mean Corpuscular Volume 96.9 fL (78.0-98.0); Mean Platelet Volume 7.3 fL (7.4-10.4); Platelet Count 224 thou/uL (130-400); RBC Distribution Width 14.3 % (11.5-14.5); Red Blood Cell (RBC) Count 4.99 mill/uL (4.70-6.10); White Blood Cell (WBC) Count 10.8 thou/uL (4.8-10.8)
[2021-03-12 07:31] LABS: Troponin I 0.062 ng/mL (< 0.028)
[2021-03-12 07:32] LABS: Troponin I 0.051 ng/mL (< 0.028)
[2021-03-12 08:30] VITALS: BMI 24.3
[2021-03-12] MEDS ORDERED: Apixaban 5 MG TAB PO SCH (09:00)
[2021-03-12] MEDS ORDERED: Ondansetron ODT 4 MG TAB SL PRN (09:30)
[2021-03-12] MEDS ORDERED: Diltiazem 125 MG in Sodium Chloride 0.9% 100 ML IVPB SCH (11:00)
[2021-03-12] MEDS: Ondansetron PF 4 MG/2 ML Vial IVP PRN ×2 (11:04→12:37)
[2021-03-12] MEDS ORDERED: Metoprolol Tartrate 5 MG/5 ML VIAL ONE (11:41)
[2021-03-12] MEDS ORDERED: Furosemide 40 MG/4 ML VIAL ONE (11:41)
[2021-03-12 12:08] LABS: Actual Bicarbonate (HCO3a) 18.5 mEq/L (22-28); Base Excess (BEa) -4.7 mEq/L (-2.0 to +3.0); CO2 Tension 30.3 mmHg (35.0-45.0); Calcium, Ionized (arterial) 1.12 mmol/L (1.12-1.30); Carboxyhemoglobin (COHb) 0.1 gm% (0.0-3.0); Hemoglobin (Hb) 16.7 g/dL (14.0-18.0); Potassium - ABG Lab 5.71 mmol/L (3.70-5.30)
[2021-03-12] MEDS: Aspirin 81 mg Enteric Coated Tablet PO SCH (12:08)
[2021-03-12] MEDS: Famotidine 20 MG TAB PO SCH ×2 (12:09→21:39)
[2021-03-12] MEDS: Rosuvastatin 20 MG TAB PO SCH (12:09)
[2021-03-12 12:10] LABS: ALV-art Gradient -362.475 mmHg (0-20); O2 Tension (PaO2), arterial 609.8 mmHg (> 80.0); Puncture Site RRA
[2021-03-12] MEDS ORDERED: Furosemide 40 MG/4 ML VIAL SLOW IVP SCH (12:15)
[2021-03-12] MEDS ORDERED: Metoprolol Tartrate 5 MG/5 ML VIAL IVP SCH ×2 (12:15→19:00)
[2021-03-12 12:46] LABS: CKMB 5.2 ng/mL (0-6.6)
[2021-03-12] MEDS ORDERED: Lorazepam 2 MG/ML VIAL SLOW IVP PRN (12:56)
[2021-03-12] MEDS ORDERED: Enoxaparin Sodium 80 MG/0.8 ML SYRINGE SC SCH ×2 (18:00→21:00)
[2021-03-12] MEDS ORDERED: Sodium Chloride 0.9% 500 ML IV SCH (18:15)
[2021-03-12] MEDS ORDERED: Famotidine 20 MG TAB PO SCH (21:00)
[2021-03-13] MEDS: Aspirin 81 mg Enteric Coated Tablet PO SCH (08:35)
[2021-03-13] MEDS: Famotidine 20 MG TAB PO SCH ×2 (08:35→21:38)
[2021-03-13] MEDS: Rosuvastatin 20 MG TAB PO SCH (08:35)
[2021-03-13] MEDS: Enoxaparin Sodium 80 MG/0.8 ML SYRINGE SC SCH ×2 (08:50→21:38)
[2021-03-13] MEDS ORDERED: Lidocaine 1% PF 5 ML VIAL ONE (13:49)
[2021-03-13] MEDS ORDERED: PROPOFOL 200 MG/20 ML VIAL ONE (13:49)
[2021-03-13] MEDS ORDERED: Digoxin 0.5 MG/2 ML AMP SLOW IVP SCH (16:30)
[2021-03-14] MEDS: Aspirin 81 mg Enteric Coated Tablet PO SCH (10:02)
[2021-03-14] MEDS: Enoxaparin Sodium 80 MG/0.8 ML SYRINGE SC SCH (10:02)
[2021-03-14] MEDS: Rosuvastatin 20 MG TAB PO SCH (10:06)
[2021-03-14] MEDS: Famotidine 20 MG TAB PO SCH ×2 (10:07→20:50)
[2021-03-14] MEDS ORDERED: Isoproterenol 0.2 MG/1 ML AMP ONE (10:22)
[2021-03-14] MEDS ORDERED: Heparin 25,000 units/D5W 500 ML ONE (10:22)
[2021-03-14] MEDS ORDERED: Heparin 10,000 UNITS/ 10 ML VIAL ONE (10:22)
[2021-03-14] MEDS ORDERED: Ketamine 50 MG/ML (10ML VIAL) ONE (11:25)
[2021-03-14] MEDS ORDERED: PROPOFOL 200 MG/20 ML VIAL ONE (11:27)
[2021-03-14] MEDS ORDERED: PHENYLEPHRINE-NS 100 MCG/ML 10 ML SYRINGE ONE (11:27)
[2021-03-14] MEDS ORDERED: Fentanyl 100 MCG/2 ML VIAL ONE (11:40)
[2021-03-14] MEDS ORDERED: PROPOFOL 40 ML ONE (12:53)
[2021-03-14] MEDS ORDERED: DOPamine 400 MG/D5W 250 ML 250 ML ONE (12:59)
[2021-03-14] MEDS: Apixaban 2.5 MG TAB PO SCH (20:50)
[2021-03-15] MEDS: Famotidine 20 MG TAB PO SCH ×2 (10:20→22:39)
[2021-03-15] MEDS: Aspirin 81 mg Enteric Coated Tablet PO SCH (10:21)
[2021-03-15] MEDS: Rosuvastatin 20 MG TAB PO SCH (10:21)
[2021-03-15] MEDS: Apixaban 2.5 MG TAB PO SCH (10:22)
[2021-03-15 14:45] LABS: Anion Gap 10 mmol/L (10-20); BUN (Urea Nitrogen) 24 mg/dL (8.4-25.7); Calc. Creatinine Clearance 56 mL/min (70-130); Calcium 8.3 mg/dL (7.8-10.44); Carbon Dioxide 27 mmol/L (23-31); Chloride 101 mmol/L (98-107); Glucose 85 mg/dL (80-115); Potassium 3.6 mmol/L (3.5-5.1); Sodium 134 mmol/L (136-145)
[2021-03-15] MEDS: Apixaban 5 MG TAB PO SCH (22:42)
[2021-03-16] MEDS: Rosuvastatin 20 MG TAB PO SCH (09:19)
[2021-03-16] MEDS: Aspirin 81 mg Enteric Coated Tablet PO SCH (09:19)
[2021-03-16] MEDS: Famotidine 20 MG TAB PO SCH (09:19)
[2021-03-16] MEDS: Apixaban 5 MG TAB PO SCH (09:19)
[2021-03-16 15:55] VITALS: BP 122/76; TEMP 97.8
== END 2021-03-16 16:20 | disposition home or self-care (01) | DRG 273 ==
LOC: ERS 22:14 → ERHOLD 03-12 02:22 → 3SE 03-12 07:42 → IMCU/EMU 03-12 12:41 → OBSVTOIN 03-12 19:53 → 3SE 03-13 13:09
PROVIDERS: ADMIT Internal Medicine; ATTEND Internal Medicine
PROC: 02573ZK Destruction of Left Atrial Appendage, Percutaneous Approach (ICD-10-PCS; principal; 2021-03-14)
PROC: 4A023FZ Measurement of Cardiac Rhythm, Percutaneous Approach (ICD-10-PCS; 2021-03-14)
PROC: 4A0234Z Measurement of Cardiac Electrical Activity, Percutaneous Approach (ICD-10-PCS; 2021-03-14)
PROC: B24BZZ4 Ultrasonography of Heart with Aorta, Transesophageal (ICD-10-PCS; 2021-03-15)
PROC: 5A2204Z Restoration of Cardiac Rhythm, Single (ICD-10-PCS; 2021-03-15)
DX: I48.92 Unspecified atrial flutter (principal); I50.23 Acute on chronic systolic (congestive) heart failure; J96.21 Acute and chronic respiratory failure with hypoxia; N17.9 Acute kidney failure, unspecified; I21.A1 Myocardial infarction type 2; Q21.1 Atrial septal defect; I13.0 Hypertensive heart and chronic kidney disease with heart failure and stage 1 through stage 4 chronic kidney disease, or unspecified chronic kidney disease; R18.8 Other ascites; J44.9 Chronic obstructive pulmonary disease, unspecified; E78.5 Hyperlipidemia, unspecified; I35.0 Nonrheumatic aortic (valve) stenosis; I25.10 Atherosclerotic heart disease of native coronary artery without angina pectoris; I07.1 Rheumatic tricuspid insufficiency; I42.8 Other cardiomyopathies; I48.0 Paroxysmal atrial fibrillation; Z20.822 Contact with and (suspected) exposure to COVID-19; N18.30 Chronic kidney disease, stage 3 unspecified; I47.1 Supraventricular tachycardia; Z95.1 Presence of aortocoronary bypass graft; Z79.82 Long term (current) use of aspirin; Z88.0 Allergy status to penicillin; Z79.51 Long term (current) use of inhaled steroids; Z79.899 Other long term (current) drug therapy; Z98.1 Arthrodesis status; Z90.49 Acquired absence of other specified parts of digestive tract; Z98.890 Other specified postprocedural states; Z87.891 Personal history of nicotine dependence
CPT/HCPCS: 36415; 36416; 36600; 71045; 71275; 74177; 76705; 76942; 80048; 80053; 80069; 82553; 82805; 83605; 83690; 83735; 83880; 84443; 84484; 85025; 86850; 86900; 86901; 87040; 92960; 93005; 93010; 93312; 93613; 93621; 93623; 93653; 94660; 96365; 96366; 96367; 96375; 96376; C1732; G0378; J0282; J0692; J1160; J1265; J1644; J1650; J1940; J2060; J2405; J2704; J3010; J3490; J7030; J7070; Q9967; U0002